=== PATIENT | female | born 1995 | race African-American/Black ===

== ENCOUNTER 2017-05-20 10:54 | Emergency (ER) | payer MEDICAID ==
[~2017-05-20] VITALS: Ht 149.9 cm; Wt 64.0 kg
[2017-05-20] MEDS ORDERED: IBUPROFEN 800MG TABLET PO ONE (12:00)
[2017-05-20 12:12] VITALS: BP 116/78
== END 2017-05-20 14:19 | disposition home or self-care (01) ==
LOC: ER 11:44
DX: R07.89 Other chest pain (principal); V43.52XA Car driver injured in collision with other type car in traffic accident, initial encounter; Y93.89 Activity, other specified; Y92.410 Unspecified street and highway as the place of occurrence of the external cause; Y99.8 Other external cause status
CPT/HCPCS: 71010; 99283

== ENCOUNTER 2021-06-23 08:22 | Emergency (ER) | payer MEDICAID, OTHER ==
[~2021-06-23] VITALS: Ht 157.5 cm; Wt 78.0 kg
[2021-06-23] MEDS ORDERED: ONDANSETRON HCL 4MG TABLET PO ONE (09:45)
[2021-06-23] MEDS ORDERED: ONDA4TAB5 PO (10:49)
[2021-06-23 11:11] VITALS: BP 113/77
== END 2021-06-23 11:30 | disposition home or self-care (01) ==
LOC: ER 08:22
DX: R11.2 Nausea with vomiting, unspecified (principal)
CPT/HCPCS: 71045; 81025; 99283; Q0162